=== PATIENT | male | born 1995 | race Caucasian/White ===

== ENCOUNTER 2018-04-02 18:38 | Emergency (ER) | payer OTHER ==
[~2018-04-02] VITALS: Ht 177.8 cm; Wt 78.2 kg
[2018-04-02 18:47] VITALS: BP 143/81
== END 2018-04-02 19:59 | disposition home or self-care (01) ==
LOC: ED 19:50
DX: R10.32 Left lower quadrant pain (principal)
CPT/HCPCS: 99283

== ENCOUNTER 2020-02-01 23:59 | Emergency (ER) | payer OTHER ==
[~2020-02-01] VITALS: Ht 182.9 cm; Wt 74.1 kg
--- NOTE | 2020-02-02 00:27 | NUR ---
Patient BIB remsa unresponsive. Patient was found on the sidewalk against a wall with his head slumped over. Pupils dilated but responsive. Respirations even, unlabored, and shallow. No trauma noted.
[2020-02-02 00:35] LABS: BASOPHILS # (AUTO) 0.02 x10^3/uL (0-0.1); BASOPHILS % (AUTO) 0 % (0-1); EOSINOPHILS # (AUTO) 0.03 x10^3/uL (0-0.4); EOSINOPHILS % (AUTO) 1 % (1-7); LYMPHOCYTES # (AUTO) 1.23 x10^3/uL (1-3.4); LYMPHOCYTES % (AUTO) 26 % (22-44); MD NO; MEAN CORPUSCULAR HEMOGLOBIN 31.5 pg (27.5-34.5); MEAN CORPUSCULAR HGB CONC 33.7 g/dL (33.2-36.2); MEAN CORPUSCULAR VOLUME 93.5 fL (81-97); MEAN PLATELET VOLUME 9.7 fL (7.4-10.4); MONOCYTES # (AUTO) 0.25 x10^3/uL (0.2-0.8); MONOCYTES % (AUTO) 5 % (2-9); NEUTROPHILS # (AUTO) 3.23 x10^3/uL (1.8-6.8); NEUTROPHILS % (AUTO) 68 % (42-75); PLATELET COUNT 188 x10^3/uL (130-400); RED CELL DISTRIBUTION WIDTH 13.5 % (9.4-14.8)
--- NOTE | 2020-02-02 00:38 | NUR ---
Continuous ETCO2 initiated.
[2020-02-02 00:47] LABS: ALBUMIN 4.5 g/dL (3.4-5.0); ANION GAP 8 mmol/L (5-15); CALCIUM 8.4 mg/dL (8.5-10.1); CHLORIDE 110 mmol/L (98-107)
[2020-02-02 00:49] LABS: SALICYLATE LEVEL < 1.7 mg/dL (2.8-20.0)
--- NOTE | 2020-02-02 00:52 | NUR ---
TASK RN: PT RESTING IN [place] W EYES CLOSED. EVEN/REGULAR, SHALLOW RESPIRATIONS NOTED. RR 18, SPO2 >90% ON SUPPLEMENTAL O2 BY NC.
[2020-02-02 03:22] VITALS: BP 106/64
--- NOTE | 2020-02-02 03:23 | NUR ---
Patient awoke. AAOx4, GCS 15. Discharge instructions given. All questions and concerns addressed. Patient ambulatory with a steady gait. Belongings with patient.
== END 2020-02-02 03:25 | disposition home or self-care (01) ==
LOC: ED 02-02 03:15
DX: F10.120 Alcohol abuse with intoxication, uncomplicated (principal); Y90.9 Presence of alcohol in blood, level not specified
CPT/HCPCS: 80048; 80307; 82040; 82962; 85025; 99283